=== PATIENT | male | born 1975 | race Caucasian/White ===

== ENCOUNTER 2024-12-07 08:01 | Outpatient (REF) | payer BC, SELFPAY ==
[2024-12-07 08:23] LABS: MANUAL DIFF FLAG NO
--- NOTE | 2024-12-07 08:23 | ECG_ITS ---
Test Reason : f43.10, f90.4, f41.1 Blood Pressure : */* mmHG Vent. Rate : 75 BPM Atrial Rate : 75 BPM P-R Int : 156 ms QRS Dur : 96 ms QT Int : 392 ms P-R-T Axes : 46 21 39 degrees QTcB Int : 437 ms Normal sinus rhythm Normal ECG No previous ECGs available Referred By: Daria Manuel Electronically Signed By: MIGUEL BREAUX
[2024-12-07 09:03] LABS: Basophils Percent Auto 0.3 % (0-2); Eosinophils Absolute Auto 0.3 X10*3/uL (0.0-0.4); Hematocrit 49.5 % (42.0-52.0); Hemoglobin 16.2 g/dl (14.0-18.0); Imm Gran Abs Auto 0.02 X10*3/uL (0.00-0.03); Imm Gran Pct Auto 0.3 % (0.0-0.4); Lymphocytes Absolute Auto 1.9 X10*3/uL (1.2-4.9); Lymphocytes Percent Auto 28.2 % (20-40); Mean Corpuscular HGB Conc 32.7 g/dl (31.0-36.0); Mean Corpuscular Hemoglobin 28.7 pg (27.0-33.0); Mean Corpuscular Volume 87.8 fL (80.0-98.0); Mean Platelet Volume 10.8 fL (9.4-12.4); Monocytes Absolute Auto 0.5 X10*3/uL (0.1-1.2); Monocytes Percent Auto 7.5 % (2-11); Neutrophils Absolute Auto 3.9 x10*3/uL (2.0-8.3); Neutrophils Percent Auto 59.7 % (45-73); Platelet Count 209 X10*3/uL (160-400); Red Blood Count 5.64 X10*6/uL (4.60-5.80); Red Cell Distribution Width 13.7 % (11.0-16.0); White Blood Count 6.6 X10*3/uL (4.8-10.8)
[2024-12-07 09:13] LABS: Estimated Average Glucose 103 mg/dL; Hemoglobin A1c % 5.2 % (<6.0); Total Hemoglobin (HGBA1C) 4195.0423 umol/L
[2024-12-07 09:39] LABS: Erythrocyte Sedimentation Rate 5 MM/HR (0-15)
[2024-12-07 09:40] LABS: Alanine Aminotransferase 36 U/L (0-40); Albumin Level 4.1 g/dL (3.5-5.0); Alkaline Phosphatase 86 U/L (39-117); Anion Gap 11 (12-20); Aspartate Amino Transferase 23 U/L (5-37); Bilirubin Total 0.5 mg/dL (0.0-1.0); Blood Urea Nitrogen 17 mg/dL (9-16); Calcium 8.9 mg/dL (8.4-10.2); Carbon Dioxide 28 mmol/L (22-29); Chloride 107 mmol/L (96-108); Cholesterol 204 mg/dL (<200); Estimated Glomerular Filt Rate > 60; Glucose Fasting 92 mg/dL (60-99); HDL Cholesterol 50 mg/dL (>40); Iron 64 mcg/dL (45-160); LDL Cholesterol Calculated 136 mg/dL (<100); Magnesium 2.3 mg/dL (1.6-2.6); Percent Iron Saturation 22 % (15-50); Sodium 142 mmol/L (135-145); Total Iron Binding Capacity 295 mcg/dL (228-428); Total Protein 7.5 g/dL (6.5-8.0); Triglycerides 93 mg/dL (<150); Unsaturated Iron Binding 231 ug/dL
[2024-12-07 09:47] LABS: Free T4 (Free Thyroxine) 0.93 ng/dL (0.71-1.85); Thyroid Stimulating Hormone 1.41 uIU/mL (0.32-4.0); Vitamin D 25-OH Total 25.4 ng/mL (>30)
[2024-12-07 10:05] LABS: Folate 14.2 ng/mL (> or = 4.0); Vitamin B12 378 pg/mL (200-900)
[2024-12-08 15:54] LABS: Homocysteine 15.2 umol/L (<11.4)
[2024-12-14 06:03] LABS: Vitamin B1 10 nmol/L (8-30)
[2024-12-14 15:04] LABS: Vitamin B6 30.3 ng/mL (2.1-21.7)
== END 2024-12-07 08:02 | disposition home or self-care (01) ==
LOC: HO.LAB 08:01
PROVIDERS: Visit Provider Psychiatry & Neurology Psychiatry
DX: F43.10 Post-traumatic stress disorder, unspecified (principal); F90.9 Attention-deficit hyperactivity disorder, unspecified type; F41.1 Generalized anxiety disorder; Z13.1 Encounter for screening for diabetes mellitus; Z13.0 Encounter for screening for diseases of the blood and blood-forming organs and certain disorders involving the immune mechanism
CPT/HCPCS: 36415; 80053; 80061; 82306; 82607; 82746; 83036; 83090; 83540; 83735; 84207; 84425; 84439; 84443; 85025; 85652; 93005

== ENCOUNTER → 2024-12-07 08:23 | Outpatient (BNV) | payer BC, SELFPAY | PROVIDERS: Visit Provider Internal Medicine | DX: F43.10 Post-traumatic stress disorder, unspecified (principal); F41.1 Generalized anxiety disorder | CPT/HCPCS: 93010 ==

== ENCOUNTER → 2024-12-11 10:00 | Outpatient (BNV) | payer BC, SELFPAY | PROVIDERS: Visit Provider Psychiatry & Neurology Psychiatry | DX: F43.10 Post-traumatic stress disorder, unspecified (principal); F90.9 Attention-deficit hyperactivity disorder, unspecified type; F39 Unspecified mood [affective] disorder | CPT/HCPCS: 90792; 99213; 99214 ==

== ENCOUNTER 2024-12-21 09:30 | Outpatient (RCR) | payer BC, SELFPAY ==
[2024-12-01 13:14] VITALS: BMI 34.6
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
--- NOTE | 2024-12-07 14:41 | HO.PHP ---
Client's case has been opened and reviewed in team.
--- NOTE | 2024-12-15 20:30 | P.PNPSP_ITS ---
Subjective Subjective Date of Service: 12/15/24 Reason For Visit: ADHD,trauma Interim History: Met with patient for follow-up. Feels he is making progress with the program and in particular finds groups therapy particularly helpful and shares some insights he has made in processing many levels of trauma. He continues on Concerta and had been switching between Wellbutrin SR and XL. He's settled on XL formulation, feels it is better tolerated along with the COncerta. He continues to experiences anxiety as over- thinking but also viscerally. He has been using his PRN anxiety medications sparingly (namely lorazepam) as he is not fond of it being a controlled substance. He is open to trialing guanfacine to address anxiety and may afford some relief in overthinking as well as targeting working memory/executive function senior living, more likely if taken regularly. He also shares unpacking some of the intrapsychic conflict as well as developments at home and with family. Denies SI, HI, AH, VH. Medication Compliance: Yes Side effects from medications: No Attending Groups: Yes Review of Systems Acute medical concerns: No Mental Status Exam Mental Status Exam Narrative: Alert, oriented, in no acute distress. Calm, cooperative, engaged, well-related. No psychomotor agitation or neurovegetative retardation. Eye contact maintained. Mood depressed, fear, some emerging feelings of anger, resentment. Affect anxious, dysthymic, some tearfulness and apprehension. Speech normal, articulate. Thought process linear, coherent, organized. Thought content related to stressors, ruminative, feeling overwhelmed, traumatized, abandoned, acute panic symptoms/ stress reaction, transient helplessness, denies SI, intention, urge or plan. Denies any aggressive ideation. Denies AH or VH. No paranoia or delusional content elicited. No evidence of psychosis. Insight and judgment fair but adequate. Diagnostics Vital Signs (24Hr): BMI result Body Mass Index 34.6 Assessment & Plan Assessment & Plan (1) Post traumatic stress disorder (PTSD): Status: Acute Code(s): F43.10 - Post-traumatic stress disorder, unspecified (2) ADHD (attention deficit hyperactivity disorder): Status: Acute Code(s): F90.9 - Attention-deficit hyperactivity disorder, unspecified type Plan start guanfacine ER 1 mg qd continue other regular medications? Routine lab work ordered as indicated EKG, routine for baseline QTc for medication considerations as indicated UDS as indicated MassPat reviewed Continue to monitor as per protocol Patient educated on: diagnosis, medication risk/benefits and medical condition Informed Consent: understands Reason for contiued partial hosp. stay Substantial Risk for: med/psych decompensation Certification I certify that partial hospital treatment is medically necessary due to the symptoms and problems resulting from the patient's mental illness and the failure to treat the patient at the partial hospital level of care would likely result in the patient requiring inpatient psychiatric care which could not be prevented at a less intensive level of care. Total time managing care of this patient today __30__ minutes. Discharge Plan Discharge Attending provider: Daria Manuel Medications: New guanfacine 1 mg tablet extended release 24 hr 1 mg PO DAILY Qty: 30 0RF cholecalciferol (vitamin D3) [Vitamin D3] 125 mcg (5,000 unit) tablet 125 mcg PO DAILY Qty: 30 2RF thiamine HCl (vitamin B1) 50 mg tablet 50 mg PO DAILY Qty: 30 0RF Continued lorazepam 1 mg tablet 1 - 2 mg PO DAILY PRN (Reason: anxiety) Patient Comments: Patient stated last use was last week. Rx Instructions: For increased anxiety. hydroxyzine pamoate 25 mg capsule 25 mg PO TID PRN (Reason: Anxiety) bupropion HCl 300 mg tablet extended release 24 hr 300 mg PO DAILY methylphenidate HCl 63 mg tablet extended release 24hr 63 mg PO DAILY triamcinolone acetonide [Nasacort Allergy] 55 mcg Aerosol,[place] 2 spray INTRANASAL DAILY Rx Instructions: administer into each nostril. Patient takes OTC. Zepbound 2.5 mg/0.5 mL Pen Injector 2.5 mg SUBCUT QWEEK Rx Instructions: for 4 weeks Print Language: Turkish
--- NOTE | 2024-12-19 22:25 | HO.PHPPROGNO ---
Subjective Subjective Date of Service: 12/18/24 Reason For Visit: ADHD,trauma Interim History: I'm struggling Feels he has made gain in groups, processing events and emotional trauma/abandonment issues. In more pragmatic terms, he discusses struggling day-to-day with low frustration tolerance, getting easily overwhelmed, irritated, often snapping at his kids and then feeling guilty that he can't be the father he knows he should be. Getting easily flooded and reactive in the home environment. Struggling with emotional regulation and having to often withdraw to his room alone to center himself. Denies any thoughts of harming self or others. He is sleeping for the most part but does not feel getting a good quality of sleep, energy is low. Guanfacine has been helpful with anxiety and is open to titrating dose. For now however, would rather focus on starting a low dose Abilify, which may be helpful in providing some emotional stability and improved stress tolerance as he continues trauma work in therapeutic setting. Medication Compliance: Yes Side effects from medications: No Attending Groups: Yes Review of Systems Acute medical concerns: No Mental Status Exam Mental Status Exam Narrative: Alert, oriented, in no acute distress. Calm, cooperative, engaged, well-related. No psychomotor agitation or neurovegetative retardation. Eye contact maintained. Mood depressed, irritable. Affect anxious, moments tearfulness/brightening. Speech normal, articulate. Thought process linear, coherent, ruminative. Thought content related to stressors, ruminative, feeling overwhelmed, traumatized, abandoned, acute panic symptoms/ stress reaction, transient helplessness, denies SI, intention, urge or plan. Denies any aggressive ideation. Denies AH or VH. No paranoia or delusional content elicited. No evidence of psychosis. Insight and judgment fair but adequate. Diagnostics Vital Signs (24Hr): BMI result Body Mass Index 34.6 Assessment & Plan Assessment & Plan (1) Post traumatic stress disorder (PTSD): Status: Acute Code(s): F43.10 - Post-traumatic stress disorder, unspecified (2) ADHD (attention deficit hyperactivity disorder): Status: Acute Code(s): F90.9 - Attention-deficit hyperactivity disorder, unspecified type (3) Mood disorder: Status: Acute Code(s): F39 - Unspecified mood [affective] disorder Plan start Abilify 1-2 mg qd continue guanfacine ER at 1-2 mg qd continue other regular medications? Routine lab work ordered as indicated EKG, routine for baseline QTc for medication considerations as indicated Continue to monitor Patient educated on: diagnosis and medication risk/benefits Informed Consent: understands Reason for contiued partial hosp. stay Substantial Risk for: inability to function and med/psych decompensation Certification I certify that partial hospital treatment is medically necessary due to the symptoms and problems resulting from the patient's mental illness and the failure to treat the patient at the partial hospital level of care would likely result in the patient requiring inpatient psychiatric care which could not be prevented at a less intensive level of care. Total time managing care of this patient today __30__ minutes. Discharge Plan Discharge Attending provider: Daria Manuel Medications: New guanfacine 1 mg tablet extended release 24 hr 1 mg PO DAILY Qty: 30 0RF cholecalciferol (vitamin D3) [Vitamin D3] 125 mcg (5,000 unit) tablet 125 mcg PO DAILY Qty: 30 2RF thiamine HCl (vitamin B1) 50 mg tablet 50 mg PO DAILY Qty: 30 0RF aripiprazole 2 mg tablet 2 mg PO BEDTIME Qty: 20 0RF thiamine HCl (vitamin B1) 50 mg tablet 50 mg PO DAILY Qty: 30 1RF Continued lorazepam 1 mg tablet 1 - 2 mg PO DAILY PRN (Reason: anxiety) Patient Comments: Patient stated last use was last week. Rx Instructions: For increased anxiety. hydroxyzine pamoate 25 mg capsule 25 mg PO TID PRN (Reason: Anxiety) bupropion HCl 300 mg tablet extended release 24 hr 300 mg PO DAILY methylphenidate HCl 63 mg tablet extended release 24hr 63 mg PO DAILY triamcinolone acetonide [Nasacort Allergy] 55 mcg Aerosol,[place] 2 spray INTRANASAL DAILY Rx Instructions: administer into each nostril. Patient takes OTC. Zepbound 2.5 mg/0.5 mL Pen Injector 2.5 mg SUBCUT QWEEK Rx Instructions: for 4 weeks Print Language: Mongolian
--- NOTE | 2024-12-21 22:35 | HO.PHPPROGNO ---
Subjective Subjective Date of Service: 12/21/24 Reason For Visit: ADHD,trauma Mental Status Exam Mental Status Exam Narrative: Alert, oriented, in no acute distress. Calm, cooperative, engaged, well-related. No psychomotor agitation or neurovegetative retardation. Eye contact maintained. Mood depressed, irritable. Affect anxious, moments tearfulness/brightening. Speech normal, articulate. Thought process linear, coherent, ruminative. Thought content related to stressors, ruminative, feeling overwhelmed, traumatized, abandoned, acute panic symptoms/ stress reaction, transient helplessness, denies SI, intention, urge or plan. Denies any aggressive ideation. Denies AH or VH. No paranoia or delusional content elicited. No evidence of psychosis. Insight and judgment fair but adequate. Diagnostics Vital Signs (24Hr): BMI result Body Mass Index 34.6 Assessment & Plan Assessment & Plan (1) Post traumatic stress disorder (PTSD): Status: Acute Code(s): F43.10 - Post-traumatic stress disorder, unspecified (2) ADHD (attention deficit hyperactivity disorder): Status: Acute Code(s): F90.9 - Attention-deficit hyperactivity disorder, unspecified type (3) Mood disorder: Status: Acute Code(s): F39 - Unspecified mood [affective] disorder Plan Discharge to [facility] continue Abilify 3.5 mg qd (1/2 tablet 2 mg + 1/2 tablet 5 mg) continue guanfacine ER at 1-2 mg qd continue other regular medications? Routine lab work ordered as indicated EKG, routine for baseline QTc for medication considerations as indicated Continue to monitor Certification I certify that partial hospital treatment is medically necessary due to the symptoms and problems resulting from the patient's mental illness and the failure to treat the patient at the partial hospital level of care would likely result in the patient requiring inpatient psychiatric care which could not be prevented at a less intensive level of care. Total time managing care of this patient today ____ minutes. Discharge Plan Discharge Attending provider: Daria Manuel Medications: New guanfacine 1 mg tablet extended release 24 hr 1 mg PO DAILY Qty: 30 0RF cholecalciferol (vitamin D3) [Vitamin D3] 125 mcg (5,000 unit) tablet 125 mcg PO DAILY Qty: 30 2RF thiamine HCl (vitamin B1) 50 mg tablet 50 mg PO DAILY Qty: 30 0RF aripiprazole 2 mg tablet 2 mg PO BEDTIME Qty: 20 0RF thiamine HCl (vitamin B1) 50 mg tablet 50 mg PO DAILY Qty: 30 1RF aripiprazole 5 mg tablet 5 mg PO BEDTIME Qty: 30 0RF Continued lorazepam 1 mg tablet 1 - 2 mg PO DAILY PRN (Reason: anxiety) Patient Comments: Patient stated last use was last week. Rx Instructions: For increased anxiety. hydroxyzine pamoate 25 mg capsule 25 mg PO TID PRN (Reason: Anxiety) bupropion HCl 300 mg tablet extended release 24 hr 300 mg PO DAILY methylphenidate HCl 63 mg tablet extended release 24hr 63 mg PO DAILY triamcinolone acetonide [Nasacort Allergy] 55 mcg Aerosol,[place] 2 spray INTRANASAL DAILY Rx Instructions: administer into each nostril. Patient takes OTC. Zepbound 2.5 mg/0.5 mL Pen Injector 2.5 mg SUBCUT QWEEK Rx Instructions: for 4 weeks Patient Education: ADHD in Adults (DC), Post Traumatic Stress Disorder (DC) Print Language: Yi
== END 2024-12-21 23:59 | disposition home or self-care (01) ==
LOC: HO.PHPA 09:30
PROVIDERS: Visit Provider Psychiatry & Neurology Psychiatry
DX: F43.10 Post-traumatic stress disorder, unspecified (principal); F90.9 Attention-deficit hyperactivity disorder, unspecified type; F39 Unspecified mood [affective] disorder; Z79.899 Other long term (current) drug therapy
CPT/HCPCS: 90791; 90853